=== PATIENT | female | born 1970 | race Caucasian/White ===

== ENCOUNTER → 2018-07-10 | Outpatient (CLI) | payer BC ==
[2018-07-10 13:27] LABS: BASO % 0.5 % (0.0-1.0); EOS # 0.3 10^3/uL (0.0-0.50); EOS % 4.7 % (0.0-3.0); HEMOGLOBIN 14.1 g/dl (12.0-15.5); LYMPH # 2.2 10^3/uL (1.5-4.5); LYMPH % 33.6 % (24.0-44.0); MEAN CORPUSCULAR HEMOGLOBIN 31.8 pg (27.0-33.0); MEAN CORPUSCULAR HGB CONC 33.6 g/dl (32.0-36.5); MEAN CORPUSCULAR VOLUME 94.8 fl (80.0-96.0); MONO # 0.7 10^3/uL (0.0-0.8); MONO % 10.2 % (0.0-5.0); NEUTROPHILS # 3.3 10^3/uL (1.8-7.7); NEUTROPHILS % 50.7 % (36.0-66.0); PLATELET COUNT, AUTOMATED 303 10^3/uL (150-450); RED BLOOD COUNT 4.43 10^6/uL (4.00-5.40); WHITE BLOOD COUNT 6.6 10^3/uL (4.0-10.0)
[2018-07-10 13:41] LABS: APPEARANCE, URINE CLEAR (CLEAR); BACTERIA, URINE AUTO NEGATIVE (NEGATIVE); BILIRUBIN, URINE AUTO NEGATIVE (NEGATIVE); BLOOD, URINE BLOOD NEGATIVE (NEGATIVE); COLOR, URINE YELLOW (YELLOW); GLUCOSE, URINE (UA) AUTO NEGATIVE (NEGATIVE); KETONE, URINE AUTO NEGATIVE (NEGATIVE); LEUKOCYTE ESTERASE, URINE AUTO NEGATIVE (NEGATIVE); MUCUS, URINE SMALL (NEGATIVE); NITRITE, URINE AUTO NEGATIVE (NEGATIVE); PROTEIN, URINE AUTO NEGATIVE (NEGATIVE); RBC, URINE AUTO 3 /HPF (0-3); SPECIFIC GRAVITY URINE AUTO 1.015 (1.002-1.035); SQUAMOUS EPITHELIAL CELL UR AU 2 /HPF (0-6); UROBILINOGEN, URINE AUTO 0.2 mg/dL (0.0-2.0); WBC, URINE AUTO 1 /HPF (0-3)
[2018-07-10 13:49] LABS: ALT/SGPT 26 U/L (12-78); BILIRUBIN,TOTAL 0.5 MG/DL (0.2-1.0); BLOOD UREA NITROGEN 12 MG/DL (7-18); CALCIUM LEVEL 8.7 MG/DL (8.5-10.1); CARBON DIOXIDE LEVEL 28 MEQ/L (21-32); CHLORIDE LEVEL 104 MEQ/L (98-107); GLOMERULAR FILTRATION RATE > 60.0 (>58); GLUCOSE, FASTING 80 MG/DL (70-100); POTASSIUM SERUM 4.3 MEQ/L (3.5-5.1); SODIUM LEVEL 139 MEQ/L (136-145); TOTAL PROTEIN 6.8 GM/DL (6.4-8.2)
== END ==
LOC: M LAB 11:27
PROVIDERS: ATTEND Dermatology
DX: L94.0 Localized scleroderma [morphea] (principal); Z79.899 Other long term (current) drug therapy; L71.8 Other rosacea; H01.134 Eczematous dermatitis of left upper eyelid; D22.5 Melanocytic nevi of trunk; L82.1 Other seborrheic keratosis

== ENCOUNTER → 2018-11-23 | Outpatient (CLI) | payer BC ==
[2018-11-23 14:56] LABS: APPEARANCE, URINE CLEAR (CLEAR); BACTERIA, URINE AUTO NEGATIVE (NEGATIVE); BILIRUBIN, URINE AUTO NEGATIVE (NEGATIVE); BLOOD, URINE BLOOD NEGATIVE (NEGATIVE); COLOR, URINE YELLOW (YELLOW); GLUCOSE, URINE (UA) AUTO NEGATIVE (NEGATIVE); KETONE, URINE AUTO TRACE mg/dL (NEGATIVE); LEUKOCYTE ESTERASE, URINE AUTO NEGATIVE (NEGATIVE); MUCUS, URINE SMALL (NEGATIVE); NITRITE, URINE AUTO NEGATIVE (NEGATIVE); PROTEIN, URINE AUTO NEGATIVE (NEGATIVE); RBC, URINE AUTO 4 /HPF (0-3); SPECIFIC GRAVITY URINE AUTO 1.023 (1.002-1.035); SQUAMOUS EPITHELIAL CELL UR AU 3 /HPF (0-6); UROBILINOGEN, URINE AUTO 0.2 mg/dL (0.0-2.0); WBC, URINE AUTO 0 /HPF (0-3)
[2018-11-23 14:59] LABS: BASO % 0.6 % (0.0-1.0); EOS # 0.3 10^3/uL (0.0-0.50); EOS % 4.3 % (0.0-3.0); HEMATOCRIT 43.3 % (36.0-47.0); HEMOGLOBIN 14.8 g/dl (12.0-15.5); LYMPH # 2.6 10^3/uL (1.5-4.5); LYMPH % 39.8 % (24.0-44.0); MEAN CORPUSCULAR HEMOGLOBIN 32.2 pg (27.0-33.0); MEAN CORPUSCULAR HGB CONC 34.2 g/dl (32.0-36.5); MEAN CORPUSCULAR VOLUME 94.3 fl (80.0-96.0); MONO # 0.7 10^3/uL (0.0-0.8); MONO % 10.8 % (0.0-5.0); NEUTROPHILS # 2.9 10^3/uL (1.8-7.7); NEUTROPHILS % 44.3 % (36.0-66.0); PLATELET COUNT, AUTOMATED 298 10^3/uL (150-450); RED BLOOD COUNT 4.59 10^6/uL (4.00-5.40); WHITE BLOOD COUNT 6.6 10^3/uL (4.0-10.0)
[2018-11-23 15:30] LABS: ALBUMIN 4.2 GM/DL (3.2-5.2); BILIRUBIN,TOTAL 0.5 MG/DL (0.2-1.0); CALCIUM LEVEL 9.3 MG/DL (8.5-10.1); CREATININE FOR GFR 1.28 MG/DL (0.55-1.30); GLOMERULAR FILTRATION RATE 47.2 (>58); POTASSIUM SERUM 3.9 MEQ/L (3.5-5.1); TOTAL PROTEIN 7.7 GM/DL (6.4-8.2)
== END ==
LOC: M LAB 14:03
PROVIDERS: ATTEND Dermatology
DX: L94.0 Localized scleroderma [morphea] (principal); L71.8 Other rosacea; H01.134 Eczematous dermatitis of left upper eyelid; D22.5 Melanocytic nevi of trunk; Z79.899 Other long term (current) drug therapy

== ENCOUNTER → 2019-06-15 | Outpatient (CLI) | payer BC | LOC: M PLALAB 09:28 | PROVIDERS: ATTEND Surgery | DX: Z15.09 Genetic susceptibility to other malignant neoplasm (principal) ==

== ENCOUNTER → 2019-06-29 | Outpatient (CLI) | payer BC ==
--- NOTE | 2019-06-29 11:04 | REPMRS ---
Patient History The patient states she had a clinical breast exam in June 2019.Family history of breast cancer at age 46 in mother, endometrial cancer in maternal aunt. Diagnostic Bilateral Mammo: June 29, 2019 - Exam #: [id number] Bilateral CC and MLO view(s) were taken. Technologist: Lakshmi Shea, Technologist Prior study comparison: January 29, 2018, bilateral digital woman screen mammo, performed at [facility]. October 11, 2016, bilateral digital woman screen mammo, performed at [facility]. FINDINGS: The breast tissue is heterogeneously dense. This may lower the sensitivity of mammography. There is a needle biopsy marker clip again noted in the left breast. The visualized implant margins are smooth. Breast parenchymal density pattern is essentially symmetric. No dominant mass, grouped microcalcification, or architectural distortion is evident on either side. 3-D tomosynthesis shows no additional findings. No significant changes when compared with prior studies. Assessment: BI-RADS/ACR category 2 mammogram. Benign Findings. Recommendation Breast MRI of both breasts in 6 months. Routine screening mammogram of both breasts in 1 year (for women over age 40). This patient's Lifetime Breast Cancer RIsk is estimated at 20.4 %. Annual screening Breast MRI scanniing is recommended for patient's whose lifetime risk assessment is over 20%. This mammogram was interpreted with the aid of an FDA-approved computer-aided dectection system. Electronically Signed By: Santi Figueroa MD 06/29/19 [id number]
--- NOTE | 2019-06-29 13:58 | REP ---
BILATERAL BREAST SONOGRAPHY: HISTORY: Following bilateral breast cysts for stability. Comparison prior breast sonography July 31, 2018, done at an outside facility. Comparison is made with today's negative mammography. FINDINGS: Bilateral breast sonography demonstrates heterogeneous fibroglandular background echotexture. Multiple small cystic areas are seen. In the right breast at 12-o'clock position, there is a cystic structure with internal hypoechoic echoes 5 mm in greatest diameter. At the 4-o'clock position in the right breast there is a similar 6 mm hypoechoic cystic structure. At 12-o'clock position in the left breast, there is a tiny focal calcification. At 12-o'clock position in the left breast there is a 5 mm hypoechoic cyst. At 1-o'clock position in the left breast, there is a 7 mm cyst and at 8-o'clock in the left breast there is a 10 mm hypoechoic cyst. These all have enhanced through transmission and well-defined back wall. Intact augmentation implant margins are seen bilaterally. No soft tissue mass is observed. No evidence of acoustic shadowing is seen. IMPRESSION: No suspicious sonographic finding in either breast. BIRADS category 2 findings. Multiple small cysts.
== END ==
LOC: M WHC 10:16
PROVIDERS: ATTEND Surgery
DX: N60.11 Diffuse cystic mastopathy of right breast (principal); N60.12 Diffuse cystic mastopathy of left breast; N60.01 Solitary cyst of right breast; N60.02 Solitary cyst of left breast
CPT/HCPCS: 76641; 77066; G0279

== ENCOUNTER 2019-10-18 12:14 | Emergency (ER) | payer BC ==
[~2019-10-18] VITALS: Ht 165.1 cm; Wt 62.4 kg
[2019-10-18] MEDS ORDERED: METRCRM (12:20)
[2019-10-18] MEDS ORDERED: DOXY100T (12:20)
[2019-10-18] MEDS ORDERED: MINO100C4 (12:20)
[2019-10-18] MEDS ORDERED: NS 1,000 ML IV ONE (12:45)
[2019-10-18] MEDS ORDERED: KETOROLAC 30 MG/ML 1ML VIAL IV ONE (12:45)
[2019-10-18 13:13] LABS: BASO % 0.7 % (0.0-1.0); EOS # 0.2 10^3/uL (0.0-0.5); EOS % 2.8 % (0.0-3.0); HEMATOCRIT 37.9 % (36.0-47.0); HEMOGLOBIN 12.9 g/dl (12.0-15.5); LYMPH # 1.9 10^3/uL (1.5-5.0); LYMPH % 31.1 % (24.0-44.0); MEAN CORPUSCULAR HEMOGLOBIN 31.8 pg (27.0-33.0); MEAN CORPUSCULAR VOLUME 93.3 fl (80.0-96.0); MONO # 0.6 10^3/uL (0.0-0.8); MONO % 9.8 % (0.0-5.0); NEUTROPHILS # 3.3 10^3/uL (1.5-8.5); NEUTROPHILS % 55.3 % (36.0-66.0); PLATELET COUNT, AUTOMATED 282 10^3/uL (150-450); RED BLOOD COUNT 4.06 10^6/uL (4.00-5.40)
[2019-10-18] MEDS ORDERED: ISOVUE-370 76% 100ML VIAL As Ordered ONE (13:37)
[2019-10-18 13:40] LABS: ALBUMIN 3.8 GM/DL (3.2-5.2); BILIRUBIN,DIRECT 0.1 MG/DL (0.0-0.2); BILIRUBIN,TOTAL 0.4 MG/DL (0.2-1.0); TOTAL PROTEIN 6.7 GM/DL (6.4-8.2)
--- NOTE | 2019-10-18 15:14 | REP ---
CT ABDOMEN AND PELVIS WITH IV CONTRAST: TECHNIQUE: Axial contrast-enhanced images from the lung bases to the pubic symphysis using 100 mL Isovue-370 intravenous contrast material with multiplanar reformations. The visualized lung bases are clear. Liver, spleen, adrenals, pancreas, and kidneys are unremarkable. There is no hydronephrosis. There is no abdominal aortic aneurysm. I see no adenopathy. There is no free air. No bowel obstruction or bowel wall thickening is seen. The appendix is normal. There is trace free fluid in the pelvis. No pelvic mass is seen. Urinary bladder is not well distended and not well evaluated. IMPRESSION: No evidence of acute appendicitis or other acute finding in the abdomen or pelvis. There is trace physiologic amount of free fluid in the pelvis. Electronically Signed by Kan Tinoco MD 10/19/2019 01:16 P
[2019-10-18 17:11] VITALS: BP 126/71
--- NOTE | 2019-10-18 23:26 | REP ---
PELVIC ULTRASOUND: Real-time sonographic evaluation of pelvis performed utilizing transabdominal and endovaginal technique. Bladder is empty. The patient has had a prior hysterectomy. The ovaries are normal in size and echotexture, right ovary measuring 3.6 x 1.6 x 2.4 cm and left ovary 3.0 x 1.8 x 2.6 cm. There is no adnexal mass. Complex dominant follicle of the left ovary measures 1.5 x 1.1 x 1.6 cm. There is trace free fluid. There is no evidence of ovarian torsion; blood flow is seen in each ovary with duplex Doppler evaluation. IMPRESSION: Status post hysterectomy. Trace physiologic amount of free fluid. No torsion. Complex follicle left ovary. Electronically Signed by Kan Tinoco MD 10/19/2019 01:40 P
== END 2019-10-18 17:26 | disposition home or self-care (01) ==
LOC: M ED 12:14
DX: N83.02 Follicular cyst of left ovary (principal); L94.0 Localized scleroderma [morphea]; Z88.2 Allergy status to sulfonamides; Z88.8 Allergy status to other drugs, medicaments and biological substances; Z79.899 Other long term (current) drug therapy; Z79.2 Long term (current) use of antibiotics
CPT/HCPCS: 74177; 76830; 76856; 80047; 80076; 81001; 83690; 85025; 93976; 96361; 96374; 99284; J1885; Q9967

== ENCOUNTER → 2019-12-16 | Outpatient (CLI) | payer BC ==
[~2019-12-16] MED LIST: DOXY100T; METRCRM; MINO100C4; PROHANCE 279.3MG/ML 15ML VIAL ONE
--- NOTE | 2020-02-07 07:42 | REP ---
MRI BILATERAL BREASTS WITH AND WITHOUT CONTRAST HISTORY: High risk for breast cancer family history. COMPARISON: Mammogram and ultrasound 06/29/2019. Lifetime risk of breast cancer 20.4%. Please note this dictation is delayed due to catastrophic facility computer failure. It is available for interpretation 12/31/2019. TECHNIQUE: Multiple sequences obtained in the axial, coronal, and sagittal planes prior to and following the intravenous administration of 12 mL ProHance. Images are evaluated in the [employer] software including dynamic post-IV gadolinium axial T1 fat sat images, subtraction images, color overlay images, CAD images, and MIP reconstruction images. FINDINGS: There are bilateral breast implants. These are intact with no evidence of extracapsular or intracapsular rupture. There is moderately extreme parenchymal tissue in both breasts. There is moderate background parenchymal enhancement symmetrically bilaterally. There are multiple small subcentimeter cysts scattered throughout both breasts. There is no axillary adenopathy. There is no suspicious enhancing mass or morphologic abnormality. IMPRESSION: BI-RADS category 2 benign bilateral breast MRI. No suspicious enhancing mass or morphologic abnormality. Multiple subcentimeter cysts scattered throughout both breasts. Bilateral breast implants are intact. Yearly supplemental screening MRI of the breasts is recommended for patients with an elevated lifetime risk of breast cancer of 20% or greater, in addition to annual screening mammography, staggered every six months. [facility]
== END ==
LOC: M RAD 09:52
PROVIDERS: ATTEND Surgery
DX: Z91.89 Other specified personal risk factors, not elsewhere classified (principal); Z80.3 Family history of malignant neoplasm of breast; Z98.82 Breast implant status
CPT/HCPCS: A9576; C8908

== ENCOUNTER → 2020-03-31 | Outpatient (CLI) | payer BC ==
[~2020-03-31] MED LIST changes: -PROHANCE 279.3MG/ML 15ML VIAL ONE
--- NOTE | 2020-03-31 15:16 | REP ---
INDICATION: LOW BACK PAIN. COMPARISON: None. FINDINGS: There is a mild grade 1 L4 upon L5 spondylolisthesis. There is minimal anterior lipping L3 and L4. There is no evidence of spondylolysis. Vertebral body height is within normal limits. The pedicles are intact bilaterally. L4-5 and L5-S1 degenerative facet joint changes are seen bilaterally.. IMPRESSION: Chronic changes as described above. <Electronically signed by Pito Bragg > 03/31/20 [id number]
== END ==
LOC: M RAD 14:51
PROVIDERS: ATTEND Internal Medicine
DX: M54.5 Low back pain (principal); M43.16 Spondylolisthesis, lumbar region

== ENCOUNTER → 2020-05-18 | Outpatient (REF) | payer SELFPAY | LOC: M LABSMTC 08:35 → EDSTATUS 12:50 | PROVIDERS: ATTEND Pediatrics | DX: Z20.828 Contact with and (suspected) exposure to other viral communicable diseases (principal) ==

== ENCOUNTER → 2020-06-30 | Outpatient (CLI) | payer BC ==
--- NOTE | 2020-06-30 08:46 | REPMRS ---
Patient History The patient states she had a clinical breast exam in 01/05 Family history of breast cancer at age 46 in mother, endometrial cancer in maternal aunt. Saline implants in both breasts, 2004. Benign ultrasound-guided core biopsy of the left breast. Digital Woman Screen Mammo: June 30, 2020 - Exam #: [id number] Bilateral CC and MLO view(s) were taken. Technologist: Karla Pearson, Technologist Prior study comparison: June 29, 2019, diagnostic bilateral mammo performed at [facility]. January 29, 2018, bilateral digital woman screen mammo, performed at [facility]. October 11, 2016, bilateral digital woman screen mammo, performed at [facility]. FINDINGS: The breast tissue is heterogeneously dense. This may lower the sensitivity of mammography. The visualized implant margins are smooth. [facility] There is a needle biopsy marker clip in the left breast. Breast parenchymal density pattern is essentially symmetric. No dominant mass, grouped microcalcification, or architectural distortion is evident on either side. 3-D tomosynthesis shows no additional findings. No significant changes when compared with prior studies. Assessment: BI-RADS/ACR category 2 mammogram. Benign Findings. Recommendation Breast MRI of both breasts in 6 months. Routine screening mammogram of both breasts in 1 year (for women over age 40). This patient's [facility] Lifetime Breast Cancer RIsk is estimated at 20.1 %. Annual screening Breast MRI scanniing is recommended for patient's whose lifetime risk assessment is over 20%. This mammogram was interpreted with the aid of an FDA-approved computer-aided dectection system. Electronically Signed By: Santi Figueroa MD 06/30/20 [id number]
== END ==
LOC: M WHC 07:56
PROVIDERS: ATTEND Surgery
DX: Z12.31 Encounter for screening mammogram for malignant neoplasm of breast (principal); Z91.89 Other specified personal risk factors, not elsewhere classified; Z98.82 Breast implant status; Z80.3 Family history of malignant neoplasm of breast; Z80.8 Family history of malignant neoplasm of other organs or systems

== ENCOUNTER → 2020-08-10 | Outpatient (REF) | LOC: M LABSMTC 13:02 | PROVIDERS: ATTEND Pediatrics | DX: Z11.52 Encounter for screening for COVID-19 (principal) ==

== ENCOUNTER → 2020-12-27 | Outpatient (CLI) | payer BC ==
[~2020-12-27] MED LIST changes: +PROHANCE 279.3MG/ML 15ML VIAL As Ordered ONE
--- NOTE | 2020-12-28 08:31 | REP ---
INDICATION: HIGH RISK DENSE BREAST TISSUE FM H/O. COMPARISON: Comparison mammography June 30, 2020. Comparison bilateral breast MRI study is from a December 16, 2019. TECHNIQUE: Three Mikayla MRI imaging was performed with a dedicated breast coil. Axial, coronal, and sagittal T1 and T2 weighted scans were obtained with and without fat saturation in the usual fashion. The study includes dynamically acquired post gadolinium-enhanced imaging with image subtraction. Maximum intensity projection and multi planar reformation imaging is included as well. This study is interpreted with the aid of [employer], an FDA approved computer aided detection (CAD) software program, on a dedicated breast MRI workstation. The gadolinium enhancement dose is 11 mL of intravenous ProHance. FINDINGS: There is a marked amount of fibroglandular tissue bilaterally corresponding with the mammographic pattern. Bilateral intact retropectoral saline augmentation implants are seen. There are small bilateral subcentimeter cysts. The there is a magnetic field susceptibility artifact in the 12 o'clock position in the left breast corresponding to a needle biopsy marker clip visible mammographically. There is moderate to marked background parenchymal enhancement. There is no evidence of axillary lymphadenopathy or significant breast cystic change. High-resolution pre and post-contrast T1 and T2 weighted scans show no suspicious morphologic abnormality in either breast. Dynamically acquired sequential postcontrast images show no suspicious area of enhancement and washout kinetics in either breast to suggest malignancy. Subtraction images show no additional abnormality. IMPRESSION: BI-RADS category 2 benign bilateral breast MRI findings. No significant change from comparison study. <Electronically signed by Santi Figueroa > 12/28/20 [id number]
== END ==
LOC: M RAD 15:55
PROVIDERS: ATTEND Surgery
DX: N60.11 Diffuse cystic mastopathy of right breast (principal); N60.12 Diffuse cystic mastopathy of left breast
CPT/HCPCS: A9576; C8908

== ENCOUNTER → 2021-05-24 | Outpatient (REF) ==
[~2021-05-24] MED LIST changes: -PROHANCE 279.3MG/ML 15ML VIAL As Ordered ONE
== END ==
LOC: M LABSMTC 12:36
PROVIDERS: ATTEND Family Medicine
DX: Z11.52 Encounter for screening for COVID-19 (principal); Z20.822 Contact with and (suspected) exposure to COVID-19

== ENCOUNTER → 2021-07-20 | Outpatient (CLI) | payer BC | LOC: M WHC 15:00 | PROVIDERS: ATTEND Nurse Practitioner Women's Health | DX: Z53.20 Procedure and treatment not carried out because of patient's decision for unspecified reasons (principal) ==

== ENCOUNTER → 2021-07-26 | Outpatient (CLI) | payer BC | LOC: M WHC 07:49 | PROVIDERS: ATTEND Surgery | DX: N63.10 Unspecified lump in the right breast, unspecified quadrant (principal); N63.20 Unspecified lump in the left breast, unspecified quadrant; N64.4 Mastodynia | CPT/HCPCS: 76642; 77066; G0279 ==

== ENCOUNTER → 2022-01-03 | Outpatient (CLI) | payer BC | LOC: M WHC 12:11 | PROVIDERS: ATTEND Surgery | DX: R92.8 Other abnormal and inconclusive findings on diagnostic imaging of breast (principal) ==

== ENCOUNTER → 2022-01-18 | Outpatient (CLI) | payer BC ==
[~2022-01-18] MED LIST changes: +PROHANCE 279.3MG/ML 15ML VIAL ONE
== END ==
LOC: M PLAIMG 07:55
PROVIDERS: ATTEND Surgery
DX: R92.8 Other abnormal and inconclusive findings on diagnostic imaging of breast (principal); N63.21 Unspecified lump in the left breast, upper outer quadrant; R07.89 Other chest pain; R92.2 Inconclusive mammogram; Z91.89 Other specified personal risk factors, not elsewhere classified
CPT/HCPCS: A9576; C8908

== ENCOUNTER → 2022-08-23 | Outpatient (CLI) | payer BC ==
[~2022-08-23] MED LIST changes: -PROHANCE 279.3MG/ML 15ML VIAL ONE
== END ==
LOC: M WHC 07:18
PROVIDERS: ATTEND Nurse Practitioner Women's Health
DX: Z12.31 Encounter for screening mammogram for malignant neoplasm of breast (principal); Z91.89 Other specified personal risk factors, not elsewhere classified; Z80.3 Family history of malignant neoplasm of breast; Z86.018 Personal history of other benign neoplasm

== ENCOUNTER → 2023-03-13 | Outpatient (CLI) | payer BC ==
[~2023-03-13] MED LIST changes: +PROHANCE 279.3MG/ML 15ML VIAL As Ordered ONE
== END ==
LOC: M RAD 12:23
PROVIDERS: ATTEND Nurse Practitioner Women's Health
DX: R92.2 Inconclusive mammogram (principal); Z91.89 Other specified personal risk factors, not elsewhere classified; Z80.3 Family history of malignant neoplasm of breast
CPT/HCPCS: A9576; C8908